=== PATIENT | female | born 1935 | race Two or more races ===

== ENCOUNTER 2024-01-14 18:31 | Emergency (ER) | payer OTHER ==
[~2024-01-14] VITALS: Ht 165.1 cm; Wt 87.1 kg
[2024-01-14] MEDS ORDERED: AVAPRO75 MG PO (18:41)
[2024-01-14] MEDS ORDERED: SYNTHROID137 MCG PO (18:41)
[2024-01-14] MEDS ORDERED: FAMOTIDINE/PF 20 MG in 0.9 % SODIUM CHLORIDE 8 ML IV PUSH STA (19:04)
[2024-01-14] MEDS ORDERED: KETOROLAC TROMETHAMINE 30 MG VIAL IV ONE (19:15)
[2024-01-14] MEDS ORDERED: ONDANSETRON HCL 2 MG/ML VIAL IV ONE (19:15)
[2024-01-14 19:37] LABS: HEMOGLOBIN 10.7 g/dL (12.0-15.00); MEAN CELL VOLUME 85.9 fL (80.00-100.00); MEAN CORPUSCULAR HEMOGLOBIN 28.7 pg (27.00-32.0); MEAN CORPUSCULAR HGB CONC 33.5 g/dl (32.0-36.0); PLATELET COUNT 233 K/uL (150-450); RED BLOOD COUNT 3.72 M/uL (4.00-6.00); RED CELL DISTRIBUTION WIDTH 15.3 % (11.5-14.5)
[2024-01-14 20:08] LABS: ALBUMIN 3.4 gm/dL (3.4-5.0); BILIRUBIN TOTAL 0.55 mg/dL (0.3-1.2); CALCIUM 8.7 mg/dL (8.5-10.1); GFR 52.32; TOTAL PROTEIN 7.4 gm/dL (6.4-8.2)
[2024-01-14 20:11] LABS: POTASSIUM 4.37 mEq/L (3.5-5.1)
[2024-01-14] MEDS ORDERED: MEDI-MECLIZINE25 MG PO (21:49)
== END 2024-01-14 22:02 | disposition home or self-care (01) ==
LOC: ER 18:31
PROVIDERS: General Practice
DX: R53.81 Other malaise (principal); R42 Dizziness and giddiness; I10 Essential (primary) hypertension; E11.9 Type 2 diabetes mellitus without complications; Z88.0 Allergy status to penicillin
CPT/HCPCS: 36415; 70450; 93005; 96365; 99284; J1885; J2405